=== PATIENT | male | born 1945 | race African-American/Black ===

== ENCOUNTER → 2016-09-16 | Outpatient (CLI) | payer OTHER, MEDICARE ==
--- NOTE | 2016-09-16 17:01 | US ---
Ultrasound Venous Duplex/Doppler Left Leg History: Pain and swelling. Previous pulmonary embolus. Findings: Ultrasound venous duplex and Doppler imaging of the common femoral vein, femoral vein, pop liteal vein, calf veins, greater saphenous vein origin, and contralateral common femoral vein demonst rates positive intraluminal thrombus in the left popliteal vein, with partial thrombus, measuring 2.3 7 m in length. No additional thrombus in the left femoral or common femoral vein. The left calf vei ns not well visualized. Impression: Positive deep venous thrombosis left popliteal vein. Findings and recommendations discussed with Nigel Rogers M.D., at 1656 hours, on September 16. Final report concurs with initial preliminary interpretation.
== END ==
LOC: FIMAGING 16:08
PROVIDERS: ATTEND Internal Medicine
DX: I82.4Z2 Acute embolism and thrombosis of unspecified deep veins of left distal lower extremity (principal)